=== PATIENT | female | born 1945 | race Caucasian/White ===

== ENCOUNTER → 2020-08-23 | Day surgery (SDC) | payer OTHER, MEDICARE ==
[2020-08-18 16:23] VITALS: BMI 15.0
[~2020-08-23] MED LIST: LIDOCAINE VISCOUS 2% ORAL/TOP 20 ML UNIT-DOSE CUP ONE
[2020-08-23 14:03] VITALS: TEMP 97.4
[2020-08-23 14:12] VITALS: BP 126/72; PULSE 64
== END | disposition home or self-care (01) ==
LOC: JASU-ENDO 05:02
PROVIDERS: ATTEND Internal Medicine Cardiovascular Disease
PROC: B246ZZ4 Ultrasonography of Right and Left Heart, Transesophageal (ICD-10-PCS; principal; 2020-08-23 12:30)
DX: I08.1 Rheumatic disorders of both mitral and tricuspid valves (principal)
CPT/HCPCS: 93312; 93325